=== PATIENT | male | born 1960 | race Caucasian/White ===

== ENCOUNTER 2024-01-05 08:57 | Day surgery (SDC) | payer MEDICARE, OTHER, SELFPAY ==
[2024-01-05 09:25] VITALS: BP 133/90; PULSE 47; RESP 17; TEMP 36.6; O2SAT 99; BMI 33.8
[2024-01-05] MEDS: Lactated Ringers 1,000 ML 15 ML IV (09:25)
--- NOTE | 2024-01-05 09:45 | HP.PCM_ITS ---
HPI - General General Date of Admission: 01/05/24 Date of Service: 01/05/24 Chief Complaint: Screening colonoscopy HPI Narrative LENA ROMERO, is a 63 M who presents today for screening colonoscopy. He had a colonoscopy approximately 6 or 7 years ago which revealed that adenomatous polyp. He comes back in for surveillance colonoscopy. He is not having any problems with his bowels. He does not have any chest pain or shortness of rashmi ath. Overall is in very good health. [facility] Medical History (Updated 12/31/23 @ 11:36 by Yue Yao) AAA (abdominal aortic aneurysm) Alcohol use Arthritis Chronic cough COPD (chronic obstructive pulmonary disease) CPAP (continuous positive airway pressure) dependence History of stress test HTN (hypertension) Hyperlipidemia Injury of head and neck Loss of hearing Low iron Migraine headache SERENITY on CPAP Shortness of breath on exertion Sleep apnea Smoker Wears dentures Wears glasses Wears hearing aid Home Medications amlodipine 10 mg tablet 10 mg PO QHS HTN 12/21/23 [History Last Taken 01/04/24] losartan 50 mg-hydrochlorothiazide 12.5 mg tablet 1 tab PO DAILY HTN 12/21/23 [History Last Taken 01/04/24] aspirin 81 mg tablet,delayed release (Adult Low Dose Aspirin) 81 mg PO DAILY 12/22/23 [History Last Taken 01/01/24] cholecalciferol (vitamin D3) 50 mcg (2,000 unit) capsule 50 mcg PO DAILY SUPPLEMENT 12/22/23 [History Last Taken 01/04/24] ferrous sulfate 325 mg (65 mg iron) tablet 325 mg PO Q OTHER DAY SUPPLEMENT 12/22/23 [History Last Taken 12/31/23] metoprolol succinate 100 mg tablet,extended release 24 hr 100 mg PO DAILY HTN 12/22/23 [History Last Taken 01/05/24] multivitamin 1 tab PO DAILY SUPPLEMENT 12/22/23 [History Last Taken Unknown] pyridoxine (vitamin B6) 50 mg tablet (Vitamin B-6) 50 mg PO DAILY SUPPLEMENT 12/22/23 [History Last Taken Unknown] rosuvastatin 20 mg tablet 20 mg PO DAILY HLD 12/22/23 [History Last Taken 01/05/24] tamsulosin 0.4 mg capsule 0.4 mg PO QHS URINE FLOW 12/22/23 [History Last Taken Unknown] Allergy/AdvReac Type Severity Reaction Status Date / Time No Known Allergies Allergy Verified 01/05/24 09:08 Family History (Updated 12/21/23 @ 15:12 by Christine Ahmadi) Mother Pancreatic cancer Brother Prostate CA Brother Lung cancer Surgical History (Updated 12/31/23 @ 11:24 by Yue Yao) History of colonoscopy with polypectomy History of left knee replacement History of right hip replacement History of tonsillectomy and adenoidectomy History of tooth extraction Hx of cholecystectomy Hx of shoulder surgery Social History (Updated 12/21/23 @ 15:13 by Christine Ahmadi) household members: spouse current occupational status: retired Smoking Status: Current every day smoker tobacco type: cigars alcohol intake: current alcohol intake frequency: holidays/special occasions only substance use type: does not use ROS Review of Systems ROS Unobtainable: other Constitutional Constitutional: Denies fatigue, fever(s), poor appetite, weight gain or weight loss ENT HEENT: Denies mouth lesions Cardiovascular Cardiovascular: Denies abdominal bloating, abdominal edema or abdominal pain Respiratory/Chest Respiratory/Chest: Denies change in mental status, change in phlegm color, chest congestion or chest tightness Gastrointestinal Gastrointestinal: Denies belching, bloating, change in bowel habits, change in stool character, chewing difficulty, coffee ground emesis, constipation, cramping, diarrhea, dyspepsia, dysphagia, early satiety, excessive flatus, fecal incontinence, heartburn, hematemesis, hematochezia, hemorrhoids, loose stools, melena, nausea, odynophagia, rectal bleeding, tenesmus, vomiting or weight lopez es Genitourinary Genitourinary: Denies abdominal discomfort, burning urination or itching Musculoskeletal Musculoskeletal: Reports as per HPI; Denies muscle weakness or myalgias Integumentary Integumentary: Denies jaundice Neurologic Neurologic: Denies lack of coordination or weakness Psychiatric Psychiatric: Denies confusion, depression, memory loss, mood swings, paranoia or suicidal ideation Endocrine Endocrinology: Denies systems reviewed and no addt'l complaints, except as documented Hematologic/Lymphatic Hematologic/Lymphatic: Denies anemia, easy bleeding, easy bruising or lymphadenopathy Allergic/Immunologic Allergic/Immunologic: Denies systems reviewed and no addt'l complaints, except as documented Vital Signs Vital Signs Vital Signs: 01/05/24 09:25 01/05/24 09:25 Temperature 97.8 F Temperature Source Temporal Pulse Rate 47 L Respiratory Rate 17 Respiratory Pattern Normal Blood Pressure 133/90 H Blood Pressure Mean 104 Blood Pressure Source Monitor Blood Pressure Position Semi-Fowlers Blood Pressure Location Left Arm Pulse Ox 99 Oxygen Delivery Method Room Air Weight Weight: 242 lb 8.136 oz Body Mass Index (BMI) 33.8 Physical Exam Const alert General Appearance: cooperative Orientation / Consciousness: oriented to person HEENT hearing grossly normal bilaterally Head and Scalp: normal to inspection Face and Sinus: face symmetric Nose: external nose normal Mouth: oral and palatal mucosa normal Eyes conjunctivae normal General Eye: normal appearance of both eyes Neck full ROM General: normal visual inspection Lymph Lymphatic: no lymphadenopathy noted Chest inspection of chest normal and palpation of chest normal Chest: symmetrical chest wall rise Resp normal respiratory effort Effort and Inspection: able to speak in complete sentences Cardio regular rate GI non-distended Percussion: normal to percussion Rectal Exam: deferred Neuro Speech: speech normal Gait (Neuro): normal gait Assessment & Plan Assessment/Plan (1) Encounter for screening for malignant neoplasm of colon: PLAN: Plan He is c explained all alternatives, risk, benefits include not withstanding bleeding, infection, sepsis, perforation, need for emergent surgery and . He will have ASA of 3.
--- NOTE | 2024-01-05 10:00 | COLBX_PTH ---
PATHOLOGY RESULTS PATIENT: LENA ROMERO LOC: EN U#:[id number] AGE/SX: 63/M ROOM: RE01/05/[address]: Dr. Ti De Souza DO : 1960 BED: DIS: 01/05/2024 SPEC #: [id number] RECD: 01/05/24 11:09 STATUS: THOMAS JACK #: [id number] MATI: 01/05/24 10:[address]: Ti De Souza DEPT: SURGICAL PATHOLOGY RECD BY: Elena Araiza ENTERED: 01/05/24 11:09 SP TYPE: COLON BX Tissues: Sigmoid colon biopsy Procedures: Surgery Specimen Level IV HEADER OPERATION: Colonoscopy - open access with polypectomy PRE-OP DIAGNOSIS: Screening TISSUE SUBMITTED: Sigmoid polyp x3 MICROSCOPIC DIAGNOSIS Sigmoid colon polyp, biopsy: Fragments of tubular adenoma. AM:loly 01/06/2024 MICROSCOPIC DESCRIPTION Slides are reviewed. GROSS DESCRIPTION Received in fixative is one container labeled with the patient's name and designated sigmoid polyp. The specimen consists of multiple irregular fragments of light kelly soft tissue that in aggregate measure 1.2 x 1.0 x 0.2 cm. The specimen is totally submitted in one cassette. / SJ:loly 01/05/2024 TC:5 CPT: 42073
[2024-01-05 10:26] VITALS: BP 133/90; BP 86/59; PULSE 61; RESP 16; TEMP 36.1; O2SAT 93
--- NOTE | 2024-01-05 10:29 | OP.COLON_ITS ---
Patient Name: Hipolito Oh Procedure Date: 01/05/2024 9:44 AM Date of : 1960 Age: 63 Procedure: Colonoscopy Indications: High risk colon cancer surveillance: Personal history of colonic polyps Providers: Ti De Souza DO Referring MD: Ti De Souza DO Medicines: Monitored Anesthesia Care Patient Profile: This is a 63 year old male. Refer to note in patient chart for documentation of history and physical. Last Colonoscopy: several years ago. Complications: No immediate complications. Procedure: Pre-Anesthesia Assessment: - Prior to the procedure, a History and Physical was performed, and patient medications and allergies were reviewed. The patient is competent. The risks and benefits of the procedure and the sedation options and risks were discussed with the patient. All questions were answered and informed consent was obtained. Patient identification and proposed procedure were verified by the physician in the pre-procedure area. Mental Status Examination: alert and oriented. Airway Examination: normal oropharyngeal airway and neck mobility. Respiratory Examination: clear to auscultation. CV Examination: normal. Prophylactic Antibiotics: The patient does not require prophylactic antibiotics. Prior Anticoagulants: The patient has taken no anticoagulant or antiplatelet agents. ASA Grade Assessment: II - A patient with mild systemic disease. After reviewing the risks and benefits, the patient was deemed in satisfactory condition to undergo the procedure. The anesthesia plan was to use monitored anesthesia care (MAC). Immediately prior to administration of medications, the patient was re-assessed for adequacy to receive sedatives. The heart rate, respiratory rate, oxygen saturations, blood pressure, adequacy of pulmonary ventilation, and response to care were monitored throughout the procedure. The physical status of the patient was re-assessed after the procedure. After I obtained informed consent, the scope was passed under direct vision. Throughout the procedure, the patient's blood pressure, pulse, and oxygen saturations were monitored continuously. The Colonoscope was introduced through the anus and advanced to the cecum, identified by appendiceal orifice and ileocecal valve. The colonoscopy was performed without difficulty. The patient tolerated the procedure well. The quality of the bowel preparation was adequate. The terminal ileum, ileocecal valve, appendiceal orifice, and rectum were photographed. Scope In: 9:58:39 AM Scope Withdrawal Time 0 hours 13 minutes 35 seconds Scope Out: 10:21:58 AM Total Procedure Duration Time 0 hours 23 minutes 19 seconds Findings: The perianal and digital rectal examinations were normal. Three sessile polyps were found in the recto-sigmoid colon and sigmoid colon. The polyps were 1 to 2 mm in size. These polyps were removed with a hot snare. Resection and retrieval were complete. Verification of patient identification for the specimen was done. Estimated blood loss was minimal. Many small and large-mouthed diverticula were found in the recto-sigmoid colon, sigmoid colon and descending colon. The exam was otherwise without abnormality on direct and retroflexion views. Impression: - Three 1 to 2 mm polyps at the recto-sigmoid colon and in the sigmoid colon, removed with a hot snare. Resected and retrieved. - Diverticulosis in the recto-sigmoid colon, in the sigmoid colon and in the descending colon. - The examination was otherwise normal on direct and retroflexion views. Recommendation: - Discharge patient to home. - Resume previous diet. - Continue present medications. - Await pathology results. - Repeat colonoscopy in 3 years for surveillance. Procedure Code(s): --- Professional --- 93438, Colonoscopy, flexible; with removal of tumor(s), polyp(s), or other lesion(s) by snare technique CPT copyright 2021 [employer]. All rights reserved. The codes documented in this report are preliminary and upon certified professional coder review may be revised to meet current compliance requirements. Ti De Souza DO 01/05/2024 10:28:49 AM This report has been signed electronically. Number of Addenda: 0 Note Initiated On: 01/05/2024 9:44 AM
--- NOTE | 2024-01-05 10:29 | OP.CCLET_ITS ---
01/05/2024 Edmar Re : Colonoscopy procedure for Hipolito Oh Dear Edmar This procedure was performed on Friday, January 05, 2024. My impressions and recommendations are as follows: Impressions : - Three 1 to 2 mm polyps at the recto-sigmoid colon and in the sigmoid colon, removed with a hot snare. Resected and retrieved. - Diverticulosis in the recto-sigmoid colon, in the sigmoid colon and in the descending colon. - The examination was otherwise normal on direct and retroflexion views. Recommendations : - Discharge patient to home. - Resume previous diet. - Continue present medications. - Await pathology results. - Repeat colonoscopy in 3 years for surveillance. My findings are described in the full procedure note, which is enclosed. If I can be of further assistance, please feel free to contact me at . Sincerely, Ti De Souza, 01/05/2024 10:28:49 AM This report has been signed electronically.
[2024-01-05 10:30] VITALS: BP 133/90; BP 84/60; PULSE 59; RESP 16; O2SAT 91
[2024-01-05 10:35] VITALS: BP 133/90; BP 91/61; PULSE 58; RESP 16; O2SAT 91
[2024-01-05 10:40] VITALS: BP 102/68; BP 133/90; PULSE 59; RESP 16; TEMP 35.9; O2SAT 100
[2024-01-05 11:06] VITALS: BP 133/90
== END 2024-01-05 11:12 | disposition home or self-care (01) ==
LOC: EN 09:00 → AC 09:03
PROVIDERS: Referring Provider Internal Medicine Gastroenterology; Visit Provider Internal Medicine Gastroenterology
PROC: 0DJD8ZZ Inspection of Lower Intestinal Tract, Via Natural or Artificial Opening Endoscopic (ICD-10-PCS; CPT 45378; principal; 2024-01-05 09:55)
DX: Z12.11 Encounter for screening for malignant neoplasm of colon (principal); J44.9 Chronic obstructive pulmonary disease, unspecified; K63.5 Polyp of colon; I10 Essential (primary) hypertension; K57.30 Diverticulosis of large intestine without perforation or abscess without bleeding; E78.5 Hyperlipidemia, unspecified; Z86.010 Personal history of colon polyps; Z79.82 Long term (current) use of aspirin; Z80.0 Family history of malignant neoplasm of digestive organs; G47.33 Obstructive sleep apnea (adult) (pediatric); Z99.89 Dependence on other enabling machines and devices; Z79.899 Other long term (current) drug therapy; Z96.652 Presence of left artificial knee joint; Z96.641 Presence of right artificial hip joint; Z90.49 Acquired absence of other specified parts of digestive tract; F17.290 Nicotine dependence, other tobacco product, uncomplicated
CPT/HCPCS: 45385; 88305; J7120; J2405

== ENCOUNTER → 2024-05-15 | Outpatient (CLI) | payer MEDICARE, OTHER, SELFPAY ==
--- NOTE | 2024-05-15 08:43 | AAVD_ITS ---
Reason For Study: AAA Aorta Measurements Aorta Doppler Measurements Proximal aorta measures2.71 x 2.45cm. in cross- Peak systolic flow velocities within the proximal sectional axis. aorta measure 41.5 cm/sec. Proximal aorta measures2.7cm. in longitudinal Peak systolic flow velocities within the mid aorta axis. measure 77.1 cm/sec. Mid aorta measures3.90 x 3.66cm. in cross- Peak systolic flow velocities within the distal sectional axis. aorta measure 87.3 cm/sec. Mid aorta measures3.90cm. in longitudinal axis. Distal aorta measures4.23 x 4.31cm. in cross- sectional axis. Distal aorta measures4.25cm. in longitudinal axis. Left Iliac Artery Left iliac artery measures 1.91 x 2.09 cm. in the cross-sectional axis. Left iliac artery measures 1.94 cm. in the longitudinal axis. Peak systolic velocity in the left iliac artery measures 70.5 cm/sec. Right Iliac Artery Right iliac artery measures 1.26 x 1.37 cm. in the cross-sectional axis. Right iliac artery measures 1.37 cm. in the longitudinal axis. Peak systolic velocity in the right iliac artery measures 146.2 cm/sec. Procedure Aorta IVC Iliac vasculature or bypass grafts 58924. Exam performed in department. VL/Abd Aortic/IVC Duplex scan Interpretation Summary Aorta patent, 4.31 cm aneurysm present Right iliac artery patent, 1.37 cm ectasia present Left iliac artery patent, 2.09 cm aneurysm present Ordering Physician: Garth Snow Performed By: Melina Nino RVT and Student
== END | disposition home or self-care (01) ==
PROVIDERS: Visit Provider Surgery Trauma Surgery
DX: I71.43 Infrarenal abdominal aortic aneurysm, without rupture (principal)
CPT/HCPCS: 93978

== ENCOUNTER → 2024-09-01 | Outpatient (CLI) | payer MEDICARE, OTHER, SELFPAY ==
--- NOTE | 2024-09-01 07:46 | CT_ITS ---
EXAM: CT MAXILLOFACIAL SINUSES WITHOUT INTRAVENOUS CONTRAST CLINICAL INDICATION: SINUSITIS TECHNIQUE: Helically acquired images were obtained of the maxillofacial sinuses without intravenous contrast. This CT exam was performed using one or more of the following dose reduction techniques: automated exposure control, adjustment of the mA and/or kV according to patient size, and/or use of iterative reconstruction technique. COMPARISON: No relevant prior studies available. FINDINGS: MAXILLARY SINUSES: Small mucus retention cyst in the right maxillary sinus. SPHENOID SINUSES: Clear. FRONTAL SINUSES: Clear. ETHMOID AIR CELLS: Clear. NASAL CAVITY/SEPTUM: Findings consistent with right inferior partial turbinectomy. Otherwise, the nasal cavity is clear. Nasal septal perforation and mild rightward nasal septal deviation. BONES/JOINTS: There are degenerative changes in the visualized cervical spine. Likely large accessory ostium versus remote right maxillary sinus antrostomy changes. VASCULATURE: Vascular calcifications are present. ORBITS: No acute findings. DENTAL: The maxilla is edentulous. There is a right maxillary alveolar dehiscence/disruption perhaps indicating an oral antral fistula which can be correlated on exam. No periodontal osseous erosion. CT/Sinus/Facial Bone IMPRESSION: 1. Likely large accessory ostium versus remote right maxillary sinus antrostomy changes. Associated right inferior partial turbinectomy. 2. The maxilla is edentulous. There is a right maxillary alveolar dehiscence/disruption perhaps indicating an oral antral fistula which can be correlated on exam. 3. Nasal septal perforation and mild rightward nasal septal deviation. RECOMMENDATION: Oral surgery and/or ENT consultation. Electronically Signed: Erwin Layton DO at 20:59 EDT ,
== END | disposition home or self-care (01) ==
PROVIDERS: PCP Internal Medicine; Referring Provider Otolaryngology; Visit Provider Otolaryngology
DX: J32.8 Other chronic sinusitis (principal)
CPT/HCPCS: 70486

== ENCOUNTER → 2024-09-11 | Outpatient (CLI) | payer MEDICARE, OTHER, SELFPAY ==
[2024-09-11 12:39] LABS: Hematocrit 39.6 % (40-54); Hemoglobin 13.7 g/dL (13.0-16.5); Mean Corp Hgb Conc 34.6 g/dL (32-36); Mean Corpuscular Hgb 30.6 pg (27.0-32.0); Mean Corpuscular Volume 88.4 fL (80-94); Mean Platelet Vol. 9.8 fl (6.2-12.0); Platelet Count 197 K/mm3 (150-450); RBC Distribution Width SD 42.2 fl (35.1-43.9); Red Blood Count 4.48 M/mm3 (4.6-6.2); White Blood Count 7.5 K/mm3 (4.4-11.0)
[2024-09-11 13:13] LABS: Anion Gap 5 (5-15); BUN 13 mg/dL (7-18); BUN/Creat Ratio 12.9 RATIO (10-20); Calcium,Total 9.2 mg/dL (8.5-10.1); Chloride 107 mmol/L (98-107); Creatinine, Serum 1.01 mg/dL (0.70-1.30); EST Glomerular Filtration Rate 79 mL/min (>60); Est Glom Filt Rate - Afr Amer 95 mL/min (>60); Glucose 93 mg/dL (74-106); Potassium 3.4 mmol/L (3.5-5.1); Sodium Level 138 mmol/L (136-145)
== END | disposition home or self-care (01) ==
LOC: LAB 11:49
PROVIDERS: PCP Internal Medicine; Referring Provider Otolaryngology; Visit Provider Otolaryngology
DX: Z01.818 Encounter for other preprocedural examination (principal)
CPT/HCPCS: 36415; 80048; 85027

== ENCOUNTER → 2024-09-12 | Outpatient (CLI) | payer MEDICARE, OTHER, SELFPAY ==
--- NOTE | 2024-09-12 | NASAL_PTH ---
PATIENT: LENA ROMERO LOC: [facility] U#:[id number] AGE/SX: 63/M ROOM: RE09/12/[address]: Dr. Jason Underwood MD : 1960 BED: DIS: 09/12/2024 SPEC #: [id number] RECD: 09/12/24 15:44 STATUS: THOMAS JACK #: [id number] MATI: 09/12/24 00:[address]: Jason Underwood DEPT: SURGICAL PATHOLOGY RECD BY: Genaro Mcelroy ENTERED: 09/13/24 09:33 SP TYPE: NASAL SPEC OTHR DR: Dr. Rhea Cortes MD Tissues: NASAL POLYP Procedures: Surgery Specimen Level IV HEADER OPERATION: Right nasal mass biopsy endoscopic PRE-OP DIAGNOSIS: Localized swelling, mass and lump, head TISSUE SUBMITTED: Nasal mass MICROSCOPIC DIAGNOSIS Nasal mass, excision: Polypoid fragments of benign respiratory mucosa with acute and chronic inflammation, most consistent with benign mucosal polyp. Negative for malignancy. See comment. 09/14/2024 COMMENT A few fragments also show underlying bone. This case was reviewed in consultation with Drs. Dominguez who concur with the above diagnosis. IDC:PW MICROSCOPIC DESCRIPTION Slides are reviewed. GROSS DESCRIPTION Received is one container labeled with the patient's name and not further designated. The specimen consists of multiple fragments of kelly soft tissue measuring in aggregate 2.0 x 1.5 x 0.3cm. The entire specimen is submitted in one cassette. 09/13/2024 TC:5 CPT:62912
== END | disposition home or self-care (01) ==
LOC: LABSPEC 15:17
PROVIDERS: PCP Internal Medicine; Referring Provider Otolaryngology; Visit Provider Otolaryngology
DX: R22.0 Localized swelling, mass and lump, head (principal)
CPT/HCPCS: 88305

== ENCOUNTER → 2024-12-27 | Outpatient (CLI) | payer MEDICARE, OTHER, SELFPAY ==
[2024-12-27 12:47] LABS: Absolute Lymphocyte Count 2.79 X10^3/uL (0.83-4.51); Absolute Neutrophil Count 3.7 X10^3/uL (2.0-7.7); Basophil# 0.06 X10^3/uL; Basophil% 0.8 % (0-1); Eosinophil# 0.21 X10^3/uL; Eosinophils% 2.9 % (0-5); Hematocrit 38.9 % (40-54); Hemoglobin 13.1 g/dL (13.0-16.5); Lymphocyte # 2.79 X10^3/ul (0.83-4.51); Lymphocyte % 39.2 % (19-41); Mean Corp Hgb Conc 33.7 g/dL (32-36); Mean Corpuscular Hgb 29.7 pg (27.0-32.0); Mean Corpuscular Volume 88.2 fL (80-94); Monocyte# 0.37 X10^3/uL; Monocyte% 5.2 % (0-10); NRBC Flagged by Analyzer 0 % (0-5); Neutrophil # 3.66 X10^3/uL (2.7-7.7); Neutrophil % 51.5 % (47-70); Platelet Count 224 K/mm3 (150-450); RBC Distribution Width CV 13.1 % (11.6-14.6); RBC Distribution Width SD 42.1 fl (35.1-43.9); Red Blood Count 4.41 M/mm3 (4.6-6.2); White Blood Count 7.1 K/mm3 (4.4-11.0)
[2024-12-27 13:36] LABS: ALB/GLOB Ratio 1.2 RATIO (0.9-2.4); AST(SGOT) 30 U/L (15-37); Alanine Aminotransfer ALT/SGPT 39 U/L (16-61); Albumin, Serum 4.2 g/dL (3.2-5.0); Alkaline Phosphatase 63 U/L (45-117); Anion Gap 7 (5-15); BUN 22 mg/dL (7-18); BUN/Creat Ratio 21.4 RATIO (10-20); Calcium,Total 9.1 mg/dL (8.5-10.1); Chloride 107 mmol/L (98-107); Cholesterol 113 mg/dL (200); Creatinine, Serum 1.03 mg/dL (0.70-1.30); EST Glomerular Filtration Rate 77 mL/min (>60); Est Glom Filt Rate - Afr Amer 93 mL/min (>60); Globulin 3.4 g/dL (2.2-4.2); Glucose 98 mg/dL (74-106); High Density Lipoprotein 31 mg/dL; Potassium 3.8 mmol/L (3.5-5.1); Protein, Total 7.6 g/dL (6.4-8.2); Sodium Level 141 mmol/L (136-145); Triglycerides 150 mg/dL; Very Low Density Lipoprotein 30 mg/dL (5-40)
== END | disposition home or self-care (01) ==
LOC: BIMLAB 10:21
PROVIDERS: Physician Assistant; PCP Internal Medicine; Referring Provider Internal Medicine; Visit Provider Internal Medicine
DX: I10 Essential (primary) hypertension (principal); E78.5 Hyperlipidemia, unspecified
CPT/HCPCS: 36415; 80053; 80061; 85025

== ENCOUNTER → 2025-01-17 | Outpatient (CLI) | payer MEDICARE, OTHER, SELFPAY ==
--- NOTE | 2025-01-17 12:32 | NEURO_ITS ---
NCS and/or EMG Patient Report Ordering Doctor: Harjinder Walker DATE OF SERVICE: 01/17/25 Hipolito presents for electrodiagnostic testing of the upper limbs. He reports numbness and tingling in both hands. Electrodiagnostic findings: Right median motor nerve demonstrates prolonged latency with normal amplitude and reduced conduction velocity. Left median motor nerve demonstrates prolonged latency with normal amplitude and conduction velocity. Ulnar motor responses within normal limits bilaterally. Prolonged m edian sensory latency at the wrist bilaterally. Prolonged right and left median F?wave. Needle EMG testing was performed upper limbs. All muscles tested showed no evidence of denervation with normal motor unit action potentials. Electrodiagnostic impression: This is an abnormal study in the upper limbs. 1. Electrodiagnostic findings suggestive of bilateral median mononeuropathy. This consistent with a moderate bilateral carpal tunnel syndrome. Multi Select Codes Neurology Neurology Interp Codes: 39066-80 Musc test done w/n test comp (interp) (2) and 23943-29 Nrv cndj test 9-10 studies (interp)
== END | disposition home or self-care (01) ==
LOC: PSN 08:52
PROVIDERS: PCP Physician Assistant; Referring Provider Orthopaedic Surgery Sports Medicine; Visit Provider Orthopaedic Surgery Sports Medicine
DX: G56.03 Carpal tunnel syndrome, bilateral upper limbs (principal)
CPT/HCPCS: 95886; 95911

== ENCOUNTER 2025-03-07 09:27 | Day surgery (SDC) | payer MEDICARE, OTHER, SELFPAY ==
[2025-03-07] VITALS (7 sets, daily range): BP systolic 136–163; BP diastolic 75–96; PULSE 53–76; RESP 14–16; TEMP 36.2–36.3; O2SAT 91–97; BMI 35.1
--- NOTE | 2025-03-07 09:32 | PRE.ANES_ITS ---
ASA Classification* ASA Classification ASA Classification: 2 Assessment & Plan Anesthesia* Anesthesia Assessment Anesthesia Assessment: Discussed sedation and/or anesthesia options, risks, benefits, and alternatives with patient/parents/legal guardian/POA. Questions invited. The patient/parents/legal guardian/POA seems to understand and agrees to proceed with anesthesia plan. Reviewed the physical assessment, medical history, allergy history and patient home medications list prior to surgery/procedure/anesthetic and documented any changes. Performed airway and anesthesia risk assessments. Anesthesia Type Anesthesia Type: General Anesthesia Focused Assessment* Airway Assessment Mouth opens: >3 cm Mallampati Score: II Focused Labs Anesthesia Preop lab: CBC WBC 7.1 K/mm3 (4.4-11.0) 12/27/24 10:12/27/24 RBC 4.41 M/mm3 (4.6-6.2) L 12/27/24 10:12/27/24 Hgb 13.1 g/dL (13.0-16.5) 12/27/24 10:12/27/24 Hct 38.9 % (40-54) L 12/27/24 10:12/27/24 Plt Count 224 K/mm3 (150-450) 12/27/24 10:12/27/24 CHEMISTRY Potassium 3.8 mmol/L (3.5-5.1) 12/27/24 10:21 12/27/24 Sodium 141 mmol/L (136-145) 12/27/24 10:12/27/24 BUN 22 mg/dL (7-18) H 12/27/24 10:12/27/24 Creatinine 1.03 mg/dL (0.70-1.30) 12/27/24 10:12/27/24 Glucose 98 mg/dL (74-106) 12/27/24 10:12/27/24 COAG Pre-Assessment Diagnosis/Proposed Procedure Planned Operative Procedure(s): (B) Bilateral Endoscopic Carpal Tunnel Release Anesthesia History 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 When Was Last Pacemaker Check QUESTION #4 FULL TEXT: You/Your Family Experience fever (hyperthermia) with Anesthesia Last Oral Intake Last Oral intake: Last Oral Intake NPO since Meds taken in AM with sips of water? Meds patient instructed to take am of surgery PONV PONV - dry end operator: PONV - dry end operator Female No 02/21/25 11:09 HX of Motion Sickness No 02/21/25 11:09 HX of N/V After Surgery No 02/21/25 11:09 Non-Smoker No 02/21/25 11:09 Duration of Surgery greater No 02/21/25 11:09 than 60 minutes Number of Risk Factors PONV Score Height & Weight Height & Weight: Anesthesia: Height & Weight Height 5 ft 11 in 03/06/25 08:06 Weight: 113.398 kg 03/06/25 08:06 Respiratory Assessment Respiratory Assessment - dry end operator: Respiratory Tract Infection Hx - dry end operator Hx Respiratory Tract Infection No 02/21/25 11:09 STOP Sleep Apnea STOP Sleep Apnea - dry end operator: STOP Sleep Apnea - dry end operator Hx Hypertension Yes: PER PT, CONTROLLED ON 02/21/25 11:09 MEDS Hx Sleep Apnea Yes 02/21/25 11:09 CPAP Yes 02/21/25 11:09 BIPAP No 02/21/25 11:09 Do you snore loudly (louder than talking or can be heard Do you often feel tired/ fatigued/ sleepy during daytime? Has anyone observed you stop breathing during sleep? STOP Results Positive 02/21/25 11:09 QUESTION #5 FULL TEXT : Do you snore loudly (louder than talking or can be heard through closed doors)? Tobacco Use History Tobacco Use History - dry end operator: Tobacco Use History - dry end operator Tobacco Use Smoking Status Current every day smoker 02/21/25 11:09 Hx Tobacco Use Yes 02/21/25 11:09 Years Smoking Packs Smoked per Day Smoking Cessation Date was within the last 15 years Hx Smoking Cessation Date Hx Smoking Cessation Counseling Hematologic Medial History Hematologic Hx - dry end operator: Hematologic Medical Hx - case managers Hx of Blood Transfusion No 02/21/25 11:09 Hx of Transfusion in last 3 No 02/21/25 11:09 Months Date of Last Transfusion (if within last 3 months) Ever experience any problems No 02/21/25 11:09 with transfusion(s)? Specify any problems Hx of Preganancy in last 3 N/A 02/21/25 11:09 Months Nurse Filling Out Transfusion VCHRISTIN 02/21/25 11:09 & Questions: Date: 02/21/25 02/21/25 11:09 Time: 11:02/21/25 11:09 Patient unable to answer at this time (ie. confused, unrespo /Reproduction History /Reproductive History - dry end operator: /Reproductive Hx- dry end operator Hx Now Gestational Age (in weeks): EDC: Hx Hx Para Hx Section SAB Active Medications Active Medications: Current Medications Generic Name Dose Route Start Last Admin Trade Name Freq PRN Reason Stop Dose Admin Cefazolin Sodium 2 gm/ N/A 20 mls @ 400 mls/hr 03/07/25 10:30 IV 03/07/25 10:32 INTRAOP [facility] Medical History Seasonal allergies Wears hearing aid Wears glasses Wears dentures Alcohol use Loss of hearing Arthritis Low iron Migraine headache Injury of head and neck CPAP (continuous positive airway pressure) dependence Shortness of breath on exertion Smoker Chronic cough History of stress test COPD (chronic obstructive pulmonary disease) SERENITY on CPAP AAA (abdominal aortic aneurysm) Hyperlipidemia HTN (hypertension) Home Medications ?Medication ?Instructions ?Recorded ?Last Taken ?Type amlodipine 10 mg tablet 10 mg PO QHS HTN 12/21/23 History aspirin 81 mg tablet,delayed 81 mg PO DAILY 12/22/23 0 01/01/24 History release (Adult Low Dose Aspirin) cholecalciferol (vitamin D3) 50 50 mcg PO DAILY SUPPLE MENT 12/22/23 01/04/24 History mcg (2,000 unit) capsule rosuvastatin 20 mg tablet 20 mg PO DAILY HLD 12/22/23 01/05/24 History tamsulosin 0.4 mg capsule 0.4 mg PO QHS URINE FLOW 06/07 Unknown History hydrochlorothiazide 12.5 mg tablet 12.5 mg PO DAILY Unknown History losartan 50 mg tablet 50 mg PO DAILY 06/09/24 Unkn own History epinephrine 0.3 mg/0.3 mL 0.3 mg IM Q5-15M PRN anaphyl axis 07/05/24 Unknown History injection, auto-injector (EpiPen) lidocaine 5 % topical patch 1 patch topical DAILY PRN pain 07/05/24 Unknown History metoprolol succinate 100 mg 100 mg PO DAILY 07/05/24 U nknown History tablet,extended release 24 hr ascorbate calcium (vitamin C) 500 1,000 mg PO DAILY Unknown History mg tablet gabapentin 300 mg capsule 300 mg PO QHS 12/27/24 Unkno wn History meloxicam 15 mg tablet 15 mg PO QDAY PRN pain 12/27 Unknown History Allergy/AdvReac Type Severity Reaction Status Date / Time bee venom protein (honey Allergy Severe Hives Verified 02/21/25 10:57 bee) (bee sting) Penicillins Allergy Severe Hives Verified 02/21/25 10:57 Family History Mother Pancreatic cancer Diabetes Brother Prostate CA Brother Lung cancer Father Cardiomyopathy CHF (congestive heart failure) Surgical History History of nasal surgery Hx of colonoscopy S/P correction of deviated nasal septum History of tooth extraction Hx of cholecystectomy History of tonsillectomy and adenoidectomy Hx of shoulder surgery History of right hip replacement History of left knee replacement History of colonoscopy with polypectomy Social History adopted: No household members: spouse number of children: 3 current occupational status: 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 [employer] pets and animals: Yes (1) pets and animals: cat(s) sexually active: Yes Smoking Status: Current every day smoker tobacco type: cigars per week: 7 Tobacco: How many years used: 40 Electronic Cigarette Use: not used alcohol intake: current alcohol intake frequency: holidays/special occasions only substance use type: does not use well-balanced diet: daily or most days caffeine: Yes (3) Type: coffee what type of physical activity do you participate in: none frequency: does not exercise seatbelt use: always do you feel safe at home: Yes Review of Systems (Anesthesia) ROS Narrative System reviewed and no additional complaints, except as documented.
[2025-03-07] MEDS: Lactated Ringers 1,000 ML 15 ML IV (10:07)
--- NOTE | 2025-03-07 10:42 | PCM.HP.STD ---
HPI - General HPI Narrative HIPOLITO ROMERO, is a 64 M who presents for bilateral endoscopic carpal tunnel surgery. No change to history and physical exam. Risks alternatives benefits discussed as well as postoperative instruction and narcotic counseling typically I do not prescribe narcotics after the surgery. Both wrists marked the patient understands no further questions. MR#: [id number] Acct: [id number] Name: HIPOLITO ROMERO Rep #: [id number] : 1960 Provider: Dr. Harjinder Walker MD Age/Sex: 64/M Location: [facility] Status: Signed Intake Vital Signs 01/09/2513:26 02/02/2508:25 02/08/2511:21 Height 5 ft 11 in 5 ft 11 in 5 ft 11 in Weight: 253 lb 250 lb BMI 35.2 34.8 Intake Visit Reasons: BILATERAL HANDS Chief Complaint: Bilateral hands Accompanied by: Is patient in pain?: Yes Pain scale (1-10): 1 Allergies Penicillins Allergy (Severe, Verified 02/08/25 11:26) Hives Medications ?Medication ?Instructions ?Recorded ?Confirmed ?Type amlodipine 10 mg tablet 10 mg PO QHS HTN 12/21/23 02/08/25 History aspirin 81 mg tablet,delayed 81 mg PO DAILY 12/22/23 02/08/25 History release (Adult Low Dose Aspirin) cholecalciferol (vitamin D3) 50 50 mcg PO DAILY SUPPLEMENT 12/22/23 02/08/25 History mcg (2,000 unit) capsule rosuvastatin 20 mg tablet 20 mg PO DAILY HLD 12/22/23 02/08/25 History tamsulosin 0.4 mg capsule 0.4 mg PO QHS URINE FLOW 12/22/23 02/08/25 History hydrochlorothiazide 12.5 mg tablet 12.5 mg PO DAILY 06/09/24 02/08/25 History losartan 50 mg tablet 50 mg PO DAILY 06/09/24 02/08/25 History epinephrine 0.3 mg/0.3 mL 0.3 mg IM Q5-15M PRN 07/05/24 02/08/25 History injection, auto-injector (EpiPen) lidocaine 5 % topical patch 1 patch topical DAILY 07/05/24 02/08/25 History metoprolol succinate 100 mg 100 mg PO DAILY 07/05/24 02/08/25 History tablet,extended release 24 hr ascorbate calcium (vitamin C) 500 1,000 mg PO DAILY 12/27/24 02/08/25 History mg tablet gabapentin 300 mg capsule 300 mg PO QHS 12/27/24 02/08/25 History meloxicam 15 mg tablet 15 mg PO QDAY PRN 12/27/24 02/08/25 History Have you fallen in the past year?: No PFSH Medical History Seasonal allergies Wears hearing aid Wears glasses Wears dentures Alcohol use Loss of hearing Arthritis Low iron Migraine headache Injury of head and neck CPAP (continuous positive airway pressure) dependence Shortness of breath on exertion Smoker Chronic cough History of stress test COPD (chronic obstructive pulmonary disease) SERENITY on CPAP AAA (abdominal aortic aneurysm) Hyperlipidemia HTN (hypertension) Surgical History S/P correction of deviated nasal septum History of tooth extraction Hx of cholecystectomy History of tonsillectomy and adenoidectomy Hx of shoulder surgery History of right hip replacement History of left knee replacement History of colonoscopy with polypectomy Family History Mother Pancreatic cancer DiabetesBrother Prostate CABrother Lung cancerFather Cardiomyopathy CHF (congestive heart failure) Social History adopted: No household members: spouse number of children: 3 current occupational status: 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 [employer] pets and animals: Yes (1) pets and animals: cat(s) sexually active: Yes Smoking Status: Current every day smoker tobacco type: cigars per week: 7 Tobacco: How many years used: 40 Electronic Cigarette Use: not used alcohol intake: current alcohol intake frequency: holidays/special occasions only substance use type: does not use well-balanced diet: daily or most days caffeine: Yes (3) Type: coffee what type of physical activity do you participate in: none frequency: does not exercise seatbelt use: always do you feel safe at home: Yes HPI BILATERAL HANDS Details: This documentation accurately reflects the service provided and the decisions made by me, Dr. Harjinder Walker MD 02/08/25 0828. Part of today?s visit was documented by [ ], acting as scribe. HIPOLITO ROMERO is a 64 year old M here today for follow-up bilateral upper extremity nerve conduction studies for assessment of carpal tunnel syndrome. Hands are still going numb. The patient is here with his . He likes to do some fishing. Supplemental Info [facility] Pulmonary Services/Neurology [address] [place] [address] MR#: [id number] Acct: [id number] Name: HIPOLITO ROMERO Rep #: [id number] : 1960 64 From: Kenneth Velasco MD Referring Dr: Harjinder Walker MD Status: REG CLI Location: [facility] Date: 01/17/25 Sex: M C NCS and/or EMG Patient Report Ordering Doctor: Harjinder Walker DATE OF SERVICE: 01/17/25 Hipolito presents for electrodiagnostic testing of the upper limbs. He reports numbness and tingling in both hands. Electrodiagnostic findings: Right median motor nerve demonstrates prolonged latency with normal amplitude and reduced conduction velocity. Left median motor nerve demonstrates prolonged latency with normal amplitude and conduction velocity. Ulnar motor responses within normal limits bilaterally. Prolonged median sensory latency at the wrist bilaterally. Prolonged right and left median F?wave. Needle EMG testing was performed upper limbs. All muscles tested showed no evidence of denervation with normal motor unit action potentials. Electrodiagnostic impression: This is an abnormal study in the upper limbs. 1. Electrodiagnostic findings suggestive of bilateral median mononeuropathy. This consistent with a moderate bilateral carpal tunnel syndrome. Multi Select Codes Neurology Neurology Interp Codes: 30504-71 Musc test done w/n test comp (interp) (2) and 17525-91 Nrv cndj test 9-10 studies (interp) Coding Level of Care Code Off vis,est,level 4 Diagnoses Carpal tunnel syndrome, bilateral G56.03 Assessment and Plan Assessment and Plan (1) Carpal tunnel syndrome, bilateral: Status: Acute Plan: 64-year-old man with nerve conduction study evidence of bilateral upper extremity moderate carpal tunnel syndrome. Discussed the pros and cons risks and benefits of continued conservative management versus carpal tunnel release surgery. This can be either endoscopic or open discussed the specific pros and stress of benefits of each of these methods of treatment possibly less pain and quicker return to function with endoscopic possibly increased risk of incomplete release with endoscopic. Patient wishes to go ahead with bilateral endoscopic carpal tunnel release. Slight increased risk of infection and postoperative complications with his 1 cigar a day smoking habit I counseled him to quit or cut back. Pros and cons risks and benefits were discussed with the patient including but not limited to infection, pain, stiffness, bleeding, damage to surrounding structures, neurovascular injury, recurrence or retear, failure or wear of hardware or fixation, instability, fracture, deep vein thrombosis and pulmonary embolism, anesthetic risks, , patient dissatisfaction, need for further surgery and other risks. Patient understood and wished to proceed with surgery, and signed the informed consent documentation. Carpal Tunnel Syndrome (CTS) occurs when the median nerve, which runs through the wrist, becomes compressed. Treatment options vary based on the severity of the condition: Non-Surgical Treatments: Wrist Splinting: Wearing a splint at night to keep the wrist in a neutral position. Activity Modification: Avoiding repetitive wrist movements or adjusting work habits. Physical Therapy: Exercises to improve wrist and hand function. Medications: Anti-inflammatory drugs (NSAIDs) or corticosteroid injections to reduce swelling and pain. Surgical Treatment: Carpal Tunnel Release Surgery: A procedure where the ligament pressing on the median nerve is cut to relieve pressure. This is considered when non-surgical treatments are ineffective. Options are min-open or endoscopic. Clinical Quality Measures Falls Risk Screening/Assistive Devices Have you fallen in the past year?: No Ortho Exam General General: Yes no acute distress Neurologic: Yes alert and Yes oriented x3 Psychologic: Yes reasonable and appropriate [facility] Medical History Seasonal allergies Wears hearing aid Wears glasses Wears dentures Alcohol use Loss of hearing Arthritis Low iron Migraine headache Injury of head and neck CPAP (continuous positive airway pressure) dependence Shortness of breath on exertion Smoker Chronic cough History of stress test COPD (chronic obstructive pulmonary disease) SERENITY on CPAP AAA (abdominal aortic aneurysm) Hyperlipidemia HTN (hypertension) Home Medications ?Medication ?Instructions ?Recorded ?Last Taken ?Type amlodipine 10 mg tablet 10 mg PO QHS HTN 12/21/23 03/06/25 History aspirin 81 mg tablet,delayed 81 mg PO DAILY 12/22/23 03/06/25 History release (Adult Low Dose Aspirin) cholecalciferol (vitamin D3) 50 50 mcg PO DAILY SUPPLEMENT 12/22/23 01/04/24 History mcg (2,000 unit) capsule rosuvastatin 20 mg tablet 20 mg PO DAILY HLD 12/22/23 01/05/24 History tamsulosin 0.4 mg capsule 0.4 mg PO QHS URINE FLOW 12/22/23 Unknown History hydrochlorothiazide 12.5 mg tablet 12.5 mg PO DAILY 06/09/24 03/06/25 History losartan 50 mg tablet 50 mg PO DAILY 06/09/24 03/06/25 History epinephrine 0.3 mg/0.3 mL 0.3 mg IM Q5-15M PRN anaphylaxis 07/05/24 Unknown History injection, auto-injector (EpiPen) lidocaine 5 % topical patch 1 patch topical DAILY PRN pain 07/05/24 Unknown History metoprolol succinate 100 mg 100 mg PO DAILY 07/05/24 03/06/25 History tablet,extended release 24 hr ascorbate calcium (vitamin C) 500 1,000 mg PO DAILY 12/27/24 Unknown History mg tablet gabapentin 300 mg capsule 300 mg PO QHS 12/27/24 Unknown History meloxicam 15 mg tablet 15 mg PO QDAY PRN pain 12/27/24 Unknown History Allergy/AdvReac Type Severity Reaction Status Date / Time bee venom protein (honey Allergy Severe Hives Verified 03/07/25 09:54 bee) (bee sting) Penicillins Allergy Severe Hives Verified 03/07/25 09:54 Family History Mother Pancreatic cancer Diabetes Brother Prostate CA Brother Lung cancer Father Cardiomyopathy CHF (congestive heart failure) Surgical History History of nasal surgery Hx of colonoscopy S/P correction of deviated nasal septum History of tooth extraction Hx of cholecystectomy History of tonsillectomy and adenoidectomy Hx of shoulder surgery History of right hip replacement History of left knee replacement History of colonoscopy with polypectomy Social History adopted: No household members: spouse number of children: 3 current occupational status: 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 [employer] pets and animals: Yes (1) pets and animals: cat(s) sexually active: Yes Smoking Status: Current every day smoker tobacco type: cigars per week: 7 Tobacco: How many years used: 40 Electronic Cigarette Use: not used alcohol intake: current alcohol intake frequency: holidays/special occasions only substance use type: does not use well-balanced diet: daily or most days caffeine: Yes (3) Type: coffee what type of physical activity do you participate in: none frequency: does not exercise seatbelt use: always do you feel safe at home: Yes Vital Signs Vital Signs Vital Signs: 03/07/25 09:55 03/07/25 09:55 Temperature 97.3 F L Temperature Source Temporal Pulse Rate 53 L Respiratory Rate 16 Respiratory Pattern Normal Blood Pressure 136/81 H Blood Pressure Mean 99 Blood Pressure Source Monitor Blood Pressure Position Semi-Fowlers Blood Pressure Location Left Arm Pulse Ox 97 Oxygen Delivery Method Room Air Weight Weight: 251 lb 15.814 oz Body Mass Index (BMI) 35.1
[2025-03-07] MEDS: Cefazolin 2 GM in Syringe IV (11:06)
[2025-03-07] MEDS: Bupivacaine 0.25% 30 ML Vial (11:22)
--- NOTE | 2025-03-07 11:53 | OP.PCM_ITS ---
Problems Associated Problem List Diagnoses (1) Carpal tunnel syndrome, bilateral: Procedures Musculoskeletal 20xxx-29xxx: Other Procedure See Report Operative Report (Standard) Operative Information Date of Procedure: 03/07/25 Pre-Operative Diagnosis: bilat carpal tunnel syndrome Post-Operative Diagnosis: same Surgery/Procedure Performed: bilateral endoscopic carpal tunnel release sports book writer: Yes Biofuels Product Manager: cirilo Tasks completed by child nutrition assistant: Retracting Additional instructional assistant?: No Type of Anesthesia: Local MAC and Local RN Documented Start/Stop Times: Operation Date: 03/07/25 11:00 Case Time Into Pre-Op 03/07/25 09:35 Out of Pre-Op 03/07/25 11:02 Anesthesia Start 03/07/25 11:06 Into Room 03/07/25 11:06 Procedure Start 03/07/25 11:23 Procedure End 03/07/25 11:52 Procedure Start Time: 11:23 Procedure Stop Time: 11:52 Select all DRAINS/GRAFTS/IMPLANTS that apply: None Estimated Blood Loss: 20 Specimen collected: No Description of surgery: Patient brought to the operating room theater. Placed upon on the table. 2g iv ancef before the start of the case. Local/MAC induced by the anesthetic team. Patient placed supine on the table all bony prominences padded. SCDs on the legs. Hand table used both sides. Tourniquet applied properly padded to both upper extremity. Upper extremity prepped and draped in the usual sterile fashion with chlorhexidine-based prep solution allowing over 3 minutes drying t misa prior to draping. Preoperative timeout performed to confirm the site patient and the surgery. Did the same procedure on both sides. Began by elevating the limb and inflated the tourniquet to 250 mmHg. I used the [employer] center line endoscopic carpal tunnel kit with omid scope technique. 1cc 0.25% bupivicaine for local anesthesia (2 total). I made a transverse 2 cm incision in line with the? transverse wrist crease.? This was in line with the fourth digit.? I carried the dissection down through skin and subcutaneous tissue achieved meticulous hemostasis. Just ulnar to palmaris tendon.? I incised the antebrachial fascia.? I passed sequential dilators into the carpal tunnel along the radial border of the Guyon's canal aiming for the fourth digit with the hand in extension.? I used a synovial elevator to identify the transverse fibers of the transverse carpal tunnel ligament.? Passed the scope into the carpal tunnel. Once I had identified the full proximal and distal extent of the ligament I fully released the ligament under direct visualization by deploying the blade and slowly withdrawing the scope made sequential passes until I no longer felt tension as well as the entire extent of the ligament was released under direct visualization.? Sounded the tunnel with magdaleno tenotomy scissors, complete release, no bands. Arthroscope light was more visible through the skin. Release the forearm fascia also. Pictures taken and saved. Wounds thoroughly irrigated.? Tourniquet let down prior to end of the case and meticulous hemostasis achieved.? Thorough irrigation.? ? Incisions closed with 3-0 vicryl and dermabond and 3-0 moncryl for skin. ?Then adaptic 4x4 gauze and tape. Patient woken up,? transferred off the operating room table and taken to postanesthetic care unit in stable condition. All sponge needle instrument counts were correct no complications.?Plan for the patient to be discharged home according to day surgery criteria when they are comfortable. Follow-up in the office in 2 days time. Gentle ROM hand and elbow no heavy lifting. Recommend wrist braces 2 weeks. cpt 90144 x2 Surgical Findings: as above Complications Complications: No Admit VTE Documentation VTE Present on Admission: No VTE Mechan Device Prophylaxis: SCD's VTE Pharm Prophylaxis ordered?: No Reason prophylaxis not ordered: Treatment Not Indicated
--- NOTE | 2025-03-07 11:57 | EX.PCM.DISCH ---
Discharge Instructions Diet Discharge Diet: No restrictions Activity Ice area for (Minutes): 10 Lifting Restrictions: no lifting or gripping, no repetitive wrist ROM Keep extremity elevated above heart level: Operative Extremity Additional Activity Instructions:: recommend wear wrist braces 2 weeks. Dressing / Incision Call your doctor if your incision/area has: Continuous Slow Oozing, Sudden Increased Bleeding, Increased Pain/ Swelling, Increased Redness, Foul Smelling Discharge and Swelling at the incision site Call your doctor if you observe: Fever of 101 or Higher, Coldness, Increased Pain and Numbness or Tingling Change Dressing in: 1 day Cleanse incision/area with: Do not get Incision Wet Additional Dressing/Incision Instructions:: ok to change dressing, keep dry and covered otherwise. Follow Up Care Please Follow Up With: Harjinder Walker MD When: 2 days or within 2 weeks. Test Results: Test results from this visit will be discussed in further detail at your follow-up appointment, if applicable. Discharge Plan Admission Attending Provider: Harjinder Walker Primary Care Provider: Eliazar Le Instructions Patient Instructions: Carpal Tunnel Release Surgery Print Language: Maltese Discharge Orders/Prescriptions Prescriptions: No Action amlodipine 10 mg tablet 10 mg PO QHS aspirin [Adult Low Dose Aspirin] 81 mg tablet,delayed release (DR/EC) 81 mg PO DAILY rosuvastatin 20 mg tablet 20 mg PO DAILY tamsulosin 0.4 mg capsule 0.4 mg PO QHS cholecalciferol (vitamin D3) 50 mcg (2,000 unit) capsule 50 mcg PO DAILY ascorbate calcium (vitamin C) 500 mg tablet 1,000 mg PO DAILY lidocaine 5 % adhesive patch,medicated 1 patch topical DAILY PRN (Reason: pain) Rx Instructions: leave on most painful area for up to 12 hrs epinephrine [EpiPen] 0.3 mg/0.3 mL auto-injector 0.3 mg IM Q5-15M PRN (Reason: anaphylaxis) Rx Instructions: do not exceed 3 doses per episode metoprolol succinate 100 mg tablet extended release 24 hr 100 mg PO DAILY losartan 50 mg tablet 50 mg PO DAILY hydrochlorothiazide 12.5 mg tablet 12.5 mg PO DAILY meloxicam 15 mg tablet 15 mg PO QDAY PRN (Reason: pain) gabapentin 300 mg capsule 300 mg PO QHS Referrals / Follow Up: Eliazar Le PA [Primary Care Provider] - Harjinder Walker MD [Med Staff - Active Staff] - Disposition Disposition (needs filled in before D/C Order can be placed): Home, Self Care
--- NOTE | 2025-03-07 12:02 | PCM.POST.ANE ---
Anesthesia: Postop Eval I Current Vital Signs Temperature: 97.4 F Pulse Rate: 76 Blood Pressure: 152/75 Respiratory Rate: 14 Pulse Ox: 91 Assessment Airway patent: Yes Spontaneous unlabored respirations: Yes nausea: No Vomiting: No Anesthesia Complication: No Fluid Hydration Crystalloid volume administer (ml): 700 Total IV fluid infused: 700 Progress Note Anesthesia document: Postop Eval 1 completed: Yes
--- NOTE | 2025-03-07 12:26 | POSTOPAN2_ITS ---
Anesthesia Postop Eval I Sum Postop Eval Completion status Anesthesia document: Postop Eval 1 completed: Yes Anesthesia Postop Eval I Summary Anesthesia Postop Eval I Summary: Anesthesia Postop Eval I: Assessment Summary Airway patent Yes 03/07/25 12:02 CARE MANAGEMENT [email or web address] Spontaneous unlabored Yes 03/07/25 12:02 CARE MANAGEMENT [email or web address] respirations Mental status nausea No 03/07/25 12:02 CARE MANAGEMENT [email or web address] Vomiting No 03/07/25 12:02 CARE MANAGEMENT [email or web address] Anesthesia Postop Eval I: Fluid Summary Crystalloid volume administer 700 03/07/25 12:02 CARE MANAGEMENT [email or web address] (ml) Colloids volume administered ( ml) Blood Product volume administered (ml) Total IV fluid infused 700 03/07/25 12:02 CARE MANAGEMENT [email or web address] Anesthesia Postop Eval I: Summary Notes Anesthesia Complication No 03/07/25 12:02 CARE MANAGEMENT [email or web address] Anesthesia Complication Comment: Post-operative progress note Anesthesia: Postop Eval II Evaluation Mental status: Awake Pain Level: 0 nausea: No Vomiting: No
--- NOTE | 2025-03-07 12:26 | PCM.POSTANE2 ---
Anesthesia Postop Eval I Sum Postop Eval Completion status Anesthesia document: Postop Eval 1 completed: Yes Anesthesia Postop Eval I Summary Anesthesia Postop Eval I Summary: Anesthesia Postop Eval I: Assessment Summary Airway patent Yes 03/07/25 12:02 HAND [email or web address] Spontaneous unlabored Yes 03/07/25 12:02 HAND [email or web address] respirations Mental status nausea No 03/07/25 12:02 HAND [email or web address] Vomiting No 03/07/25 12:02 HAND [email or web address] Anesthesia Postop Eval I: Fluid Summary Crystalloid volume administer 700 03/07/25 12:02 HAND [email or web address] (ml) Colloids volume administered ( ml) Blood Product volume administered (ml) Total IV fluid infused 700 03/07/25 12:02 HAND [email or web address] Anesthesia Postop Eval I: Summary Notes Anesthesia Complication No 03/07/25 12:02 HAND [email or web address] Anesthesia Complication Comment: Post-operative progress note Anesthesia: Postop Eval II Evaluation Mental status: Awake Pain Level: 0 nausea: No Vomiting: No
[2025-03-07] MEDS: HYDROcodone Bitartrate/Apap 5/325 Tablet PO (12:58)
== END 2025-03-07 13:22 | disposition home or self-care (01) ==
LOC: SDC 09:28 → AC 09:29
PROVIDERS: PCP Physician Assistant; Referring Provider Orthopaedic Surgery Sports Medicine; Visit Provider Orthopaedic Surgery Sports Medicine
PROC: (CPT 29848; principal; 2025-03-07 10:45)
DX: G56.03 Carpal tunnel syndrome, bilateral upper limbs (principal); I10 Essential (primary) hypertension; E78.5 Hyperlipidemia, unspecified; F17.290 Nicotine dependence, other tobacco product, uncomplicated; Z79.82 Long term (current) use of aspirin; Z79.899 Other long term (current) drug therapy
CPT/HCPCS: 29848; 01810

== ENCOUNTER → 2025-05-29 | Outpatient (CLI) | payer MEDICARE, OTHER, SELFPAY ==
--- NOTE | 2025-05-29 08:51 | AAVD_ITS ---
Reason For Study Reason For Study: AAA Aorta Measurements Aorta Doppler Measurements Proximal aorta measures2.23 x 2.38cm. in cross-sectional Peak systolic flow velocities within the proximal aorta axis. measure 53.7 cm/sec. Proximal aorta measures2.32cm. in longitudinal axis. Peak systolic flow velocities within the mid aorta measure Mid aorta measures3.95 x 3.5cm. in cross-sectional axis. 70.2 cm/sec. Mid aorta measures3.4cm. in longitudinal axis. Peak systolic flow velocities within the distal aorta Distal aorta measures4.44 x 4.93cm. in cross-sectional axis.measure 53.7 cm/sec. Distal aorta measures4.44cm. in longitudinal axis. Left Iliac Artery Left iliac artery measures 1.81 x 1.63 cm. in the cross-sectional axis. Left iliac artery measures 1.75 cm. in the longitudinal axis. Peak systolic velocity in the left iliac artery measures 39.7 cm/sec. Right Iliac Artery Right iliac artery measures 2.04 x 2.04 cm. in the cross-sectional axis. Right iliac artery measures 1.99 cm. in the longitudinal axis. Peak systolic velocity in the right iliac artery measures 59.2 cm/sec. Procedure Aorta IVC Iliac vasculature or bypass grafts [id number]. Technically difficult due to body habitus. Exam performed in department. 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 Left iliac artery patent, 1.81 cm aneurysm present. Ordering Physician: Domitlia Fitzgerald Referring Physician: Eliazar Le Performed By: Tammy Kulkarni, JANAECS, RVT
--- NOTE | 2025-05-29 08:51 | AAVD_ITS ---
Reason For Study Reason For Study: AAA Aorta Measurements Aorta Doppler Measurements Proximal aorta measures2.23 x 2.38cm. in cross-sectional Peak systolic flow velocities within the proximal aorta axis. measure 53.7 cm/sec. Proximal aorta measures2.32cm. in longitudinal axis. Peak systolic flow velocities within the mid aorta measure Mid aorta measures3.95 x 3.5cm. in cross-sectional axis. 70.2 cm/sec. Mid aorta measures3.4cm. in longitudinal axis. Peak systolic flow velocities within the distal aorta Distal aorta measures4.44 x 4.93cm. in cross-sectional axis.measure 53.7 cm/sec. Distal aorta measures4.44cm. in longitudinal axis. Left Iliac Artery Left iliac artery measures 1.81 x 1.63 cm. in the cross-sectional axis. Left iliac artery measures 1.75 cm. in the longitudinal axis. Peak systolic velocity in the left iliac artery measures 39.7 cm/sec. Right Iliac Artery Right iliac artery measures 2.04 x 2.04 cm. in the cross-sectional axis. Right iliac artery measures 1.99 cm. in the longitudinal axis. Peak systolic velocity in the right iliac artery measures 59.2 cm/sec. Procedure Aorta IVC Iliac vasculature or bypass grafts [id number]. Technically difficult due to body habitus. Exam performed in department. 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 Left iliac artery patent, 1.81 cm aneurysm present. Ordering Physician: Domitila Fitzgerald Referring Physician: Eliazar Le Performed By: Tammy Kulkarni, JANAECS, RVT
== END | disposition home or self-care (01) ==
LOC: CVS 08:50
PROVIDERS: PCP Physician Assistant; Referring Provider Physician Assistant; Visit Provider Physician Assistant
DX: I71.43 Infrarenal abdominal aortic aneurysm, without rupture (principal)
CPT/HCPCS: 93978